=== PATIENT | male | born 1970 | race Caucasian/White ===

== ENCOUNTER 2022-02-08 10:53 | Outpatient (CLI) | payer BC, SELFPAY ==
[2022-02-08 11:06] LABS: Hematocrit 49.9 % (40.0-54.0); Hemoglobin 17.6 g/dL (14.0-18.0); Mean Corpuscular HGB Conc 35.3 g/dL (32.0-36.0); Mean Corpuscular Hemoglobin 30.5 pg (27.0-31.0); Mean Corpuscular Volume 86.5 fL (78.0-102.0); Mean Platelet Volume 10.3 fl (8.7-11.0); Platelet Count Result 218 K/mm3 (150-420); Red Blood Count 5.77 M/mm3 (4.70-6.10); Red Cell Distribution Width 12.9 % (11.6-14.4); White Blood Count 11.6 K/mm3 (4.8-10.8)
[2022-02-08 11:36] LABS: Alanine Aminotransferase 24 U/L (16-63); Albumin Level 3.9 g/dL (3.4-5.0); Alkaline Phosphatase 77 U/L (46-116); Anion Gap 10 mmol/L (8-16); Aspartate Amino Transferase 17 U/L (15-37); Bilirubin,Total 0.4 mg/dL (0.00-1.00); Blood Urea Nitrogen 20 mg/dL (7-18); Carbon Dioxide 26 mmol/L (21-32); Chloride 103 mmol/L (98-108); Cholesterol 243 mg/dL (0-200); Estimated Glomerular Filt Rate > 60; Glucose 158 mg/dL (70-99); HDL Direct 36 mg/dL (40-60); LDL Cholesterol Calculated 160 mg/dL (<130); Osmolality Calculated 293 mOsm/kg (285-295); Potassium 3.7 mmol/L (3.5-5.1); Sodium 139 mmol/L (136-145); Total Protein 7.2 g/dL (6.4-8.2); Triglycerides 237 mg/dL (0-150)
[2022-02-08 12:00] LABS: Thyroid Stimulating Hormone Reflex 1.04 u/IU/mL (0.36-3.74)
== END 2022-02-08 10:54 | disposition home or self-care (01) ==
PROVIDERS: PCP Family Medicine; Visit Provider Family Medicine
DX: E11.9 Type 2 diabetes mellitus without complications (principal); I10 Essential (primary) hypertension
CPT/HCPCS: 36415; 80053; 80061; 84443; 85027

== ENCOUNTER 2022-07-11 11:09 | Outpatient (CLI) | payer BC, SELFPAY | END 2022-07-11 11:10 | disposition home or self-care (01) | LOC: CHSLAB 11:11 | PROVIDERS: PCP Family Medicine; Visit Provider Specialist | DX: C44.311 Basal cell carcinoma of skin of nose (principal) | CPT/HCPCS: 88305 ==

== ENCOUNTER 2023-04-10 16:13 | Outpatient (CLI) | payer BC, SELFPAY | END 2023-04-10 16:14 | disposition home or self-care (01) | LOC: CHSLAB 16:16 | PROVIDERS: PCP Family Medicine; Visit Provider Specialist | DX: C44.311 Basal cell carcinoma of skin of nose (principal) | CPT/HCPCS: 88305 ==

== ENCOUNTER 2024-12-28 08:16 | Emergency (ER) | payer BC, SELFPAY ==
[2024-12-28 08:30] VITALS: BP 173/109; PULSE 75; RESP 20; TEMP 36.7; O2SAT 97
--- NOTE | 2024-12-28 08:41 | ED.URI ---
HPI - URI/Sore Throat General Chief Complaint: Upper Respiratory Infection Stated Complaint: Dizziness Headache swollen watery eyes Patient presents to [facility] with complaints of intermittent sinus pain, headache, dizziness, swelling and watering to both eyes that began about 3 weeks ago. Patient noted symptoms did improve but over the last week but worse again. Patient noted in the morning this is better but as the day goes on symptoms do get worse. Patient does report that he has not been to the doctor in many years, used to be on blood pressure medication. the patient denies taking blood pressure at home. Denies chest pain, shortness a breath, vision changes, palpitations, nausea, vomiting, or indigestion. Related Data Allergies Allergy/AdvReac Type Severity Reaction Status Date / Time No Known Allergies Allergy Verified 12/28/24 08:35 Review of Systems Constitutional: Constitutional: Reports as per HPI, Denies chills, Denies fatigue, Denies fever(s) and Denies weakness Eyes: Eyes: Reports as per HPI, Denies change in vision and Denies photophobia Comments: Swelling, pressure around eyes, watering to both eyes ENT: Reports as per HPI, Reports vertigo, Reports dizziness, Denies nasal congestion and Denies sore throat Cardiovascular: Cardiovascular: Reports as per HPI, Reports chest pain, Denies rapid heart rate, Denies radiating jaw, neck or arm pain and Denies slow heart rate Respiratory: Respiratory: Reports as per HPI, Denies chest congestion, Denies cough, Denies dyspnea and Denies wheezing Gastrointestinal: Gastrointestinal: Reports as per HPI, Denies heartburn, Denies diarrhea, Denies nausea and Denies vomiting Genitourinary: Genitourinary: Reports no additional male genitourinary complaints Musculoskeletal: Musculoskeletal: Reports no additional musculoskeletal complaints Integumentary/Breasts: Skin/Breast: Reports system reviewed and no additional complaints, except as docu Neurologic: Reports as per HPI, Reports vertigo, Reports dizziness, Reports headache(s), Denies numbness and Denies weakness Psychiatric: Psychiatric: Reports no additional psychiatric complaints Endocrine: Endocrine: Reports no additional endocrine complaints Hematologic/Lymphatic: Hematologic/Lymphatic: Reports no additional hematologic/lymphatic complaints Allergic/Immunologic: Allergic/Immunologic: Reports as per HPI, Denies lip swelling, Denies throat swelling, Denies tongue swelling and Denies wheezing Comments: sinus pressure, watering and itching to both eyes Exam Const: General: healthy appearing and no acute distress Nutritional Appearance: well nourished Orientation/consciousness: patient oriented x3 Limitations: no limitations HENMT: Head: normal to inspection Ears: external ears normal and TM's abnormal bilaterally ( bulging bilaterally with moderate clear fluid behind both TMs) Face/Nose/Sinus: Normal external nose present Face and sinus: normal facial exam and sinus tenderness ( bilateral) frontal and maxillary Mouth: Yes Normal oral and palatal mucosa present, Yes lip normal and Yes moist mucous membranes Throat: posterior oropharynx abnormal ( moderate erythema, no edema or exudate) Eyes: Conjunctivae: conjunctivae normal Pupils: Equal, round and reactive pupils present EOM: EOMs intact bilaterally Direct Ophthalmoscopy: no photophobia Neck: Neck: normal visual inspection and no lymphadenopathy Resp: Effort & Inspection: normal respiratory effort Auscultation: clear to auscultation bilaterally Cardio: Rate: regular rate Rhythm: regular rhythm Skin: General skin exam: normal color Rashes: no rashes Wounds: no wounds Neuro: General: patient oriented x3, moves all extremities, no meningeal signs and no focal motor deficits Cranial nerves: Yes Nystagmus not present Speech: normal speech Gait exam (Neuro): Normal gait present Extrem: General: normal to inspection, no clubbing, cyanosis or edema and no pedal edema Psych: Mental Status: mental status grossly normal Affect: normal affect Attitude: cooperative Course Course Level of Care: Express Care Visit Vital Signs Vital signs: Vital Signs Temperature 98.1 F 12/28/24 08:30 Pulse Rate 75 12/28/24 08:30 Respiratory Rate 20 12/28/24 08:30 Blood Pressure 173/109 H 12/28/24 08:30 Pulse Oximetry 97 12/28/24 08:30 Oxygen Delivery Room Air 12/28/24 08:30 Temperature 98.1 F 12/28/24 08:30 Pulse Rate 75 12/28/24 08:30 Respiratory Rate 20 12/28/24 08:30 Blood Pressure 173/109 H 12/28/24 08:30 Pulse Oximetry 97 12/28/24 08:30 Oxygen Delivery Room Air 12/28/24 08:30 MDM - URI/Sore Throat MDM Narrative Medical decision making narrative: spoke with patient about overall symptoms. Also noted concerns with blood pressure Discharge instructions reviewed with patient, as well as provided in writing per nursing staff. The instructions also include specific and strict return/GO TO THE ER as well as f/u information. All questions have been answered, and the patient deny any further questions with discharge and discharge plan. Differential Diagnosis Differential diagnosis: Likely upper respiratory infection, otitis media, sinusitis, viral infection, influenza and pharyngitis Medical Records Attestation: I reviewed the patient's medical records. Discharge Plan Discharge Clinical Impression: Sinusitis, Elevated blood pressure reading, Dizziness Patient Disposition: Home Condition: Stable Instructions: Antibiotic Form, Sinusitis (ED), Chronic Hypertension (ED), DASH Eating Plan (ED), Warm Compress or Soak (ED) Additional Instructions: Please schedule a follow up visit with your personal physician for further evaluation and treatment within 3-5 days. Including recheck and discussion of your blood pressure. If your symptoms persist, change or worsen significantly before you can contact your personal physician then please, without delay, go to the emergency department for further evaluation. Your blood pressure was elevated above 120/80 today at Urgent Care. This puts you above the threshold for follow up visit with a primary care provider. High blood pressure does not usually cause any symptoms, however it may lead to kidney failure, stroke, heart disease just to name a few if untreated . Many people are anxious when seeing a provider or nurse. As a result, you are not diagnosed with hypertension at this time unless your blood pressure is persistently high at two office visits at least one week apart; therefore it is very important that you follow up with a primary care doctor for further evaluation. Return to urgent care or go to the ER for new or worsening symptoms. Continue to take Tylenol or Motrin for pain. Use a humidifier or vaporizer at night. Take Medications as prescribed. Drink plenty of water. 8-10 glasses per day. Use flonase 2 times per day for 5 days then as needed Take mucinex 2 times per day and be sure to take with 8oz of water. Follow up with Primary provider if not getting better. Return to Express Care or go to the ER for new or worsening symptoms. Take the full dose of antibiotics as directed to decrease inflammation and open up sinus and airway Increase water intake to 8-10 glasses per day Patient Language: Israeli Prescriptions: New amoxicillin 875 mg tablet 875 mg PO Q12H Qty: 20 0RF Follow-up/Referrals: PHYSICIAN,CHAR DUST CLEANER AND SALVAGER [Primary Care Provider] - Time of Disposition: 08:50
== END 2024-12-28 08:55 | disposition home or self-care (01) ==
PROVIDERS: Emergency Provider Nurse Practitioner Family
DX: J32.9 Chronic sinusitis, unspecified (principal); R03.0 Elevated blood-pressure reading, without diagnosis of hypertension; R42 Dizziness and giddiness
CPT/HCPCS: 99203; G0463

== ENCOUNTER 2024-12-29 08:50 | Emergency (ER) | payer BC, SELFPAY ==
[2024-12-29] VITALS (18 sets, daily range): BP systolic 137–184; BP diastolic 90–111; PULSE 75; RESP 16–17; TEMP 36.3; O2SAT 91–97
--- NOTE | ~2024-12-29 | CT_ITS ---
EXAMINATION: CT brain wo con DATE: 12/29/2024 10:53 INDICATION: Dizziness TECHNIQUE: Computed tomography (CT) of the head was performed without intravenous contrast. Sagittal and coronal reconstructions were performed. The mA was adjusted according to patient size. Iterative reconstruction technique was employed. The dose-length product was 756.67 mGy-cm. COMPARISON: None FINDINGS: No acute intracranial hemorrhage, acute infarction or abnormal extra axial fluid collection. Ventricl es are normal and symmetric. No mass/mass effect. Mild mucosal thickening the bilateral and maxillary sinuses. The orbits and mastoid air cells are normal. IMPRESSION: 1. No acute intracranial process. Reviewed, dictated and finalized at location A.
--- NOTE | 2024-12-29 08:52 | ECG_ITS ---
Test Date: 2024-12-29 09:19:54 Measurements Intervals Louann Rate: 65 P: 25 CO: 153 QRS: -50 QRSD: 98 T: -4 QT: 398 QTc: 416 Interpretive Statements SINUS RHYTHM LEFT ANTERIOR FASCICULAR BLOCK [QRS AXIS <= -45, QR IN I, RS IN II] No previous ECG available for comparison Electronically Signed On 12-29-2024 12:43:48 CDT by Doyle Rockwell M.D.
--- NOTE | 2024-12-29 08:53 | ED_ITS ---
HPI - Dizziness General Chief Complaint: Recheck/Abnormal Lab/Rx Stated Complaint: HTN Time Seen by Provider: 12/29/24 08:52 History of Present Illness HPI Narrative: pt went to yesterday for some sinus congestion and dizziness and was informed he had high BP and needed to get checked out. Pt saw Dr Currie years ago and was started on BP meds but worked out of [place] for a year and stopeed taking them and has not been back. Pt has intermittent SCOTT but none now and dizziness. Pt denies CP or SOB. Pt rechecked BP this morning and it was 160/110. Related Data Home Medications ?Medication ?Instructions ?Recorded ?Confirmed ?Last Taken ?Type omeprazole 20 mg capsule,delayed 20 mg PO DAILY 02/08/22 12/29/24 12/29/24 History release amoxicillin 875 mg tablet mg 12/29/24 12/29/24 History Allergies Allergy/AdvReac Type Severity Reaction Status Date / Time No Known Allergies Allergy Mild Verified 12/29/24 08:55 Review of Systems 2 Review of Systems: All systems reviewed & are unremarkable except as noted in HPI and below PMFSH Family History Family History Mother Family history of emphysema Other Hypertension Social History Social History Smoking packs per day: 1 Smoking cigarettes per day: 20.0 Years smoked: 35 Smoking pack-years: 35.00 Smoking status: Current every day smoker Alcohol intake: current Alcohol use details: Occasionally Exam 2 Const: General: healthy appearing and no acute distress Nutritional Appearance: well nourished Orientation/consciousness: patient oriented x3 Limitations: no limitations HENMT: Head: normal to inspection Eyes: Pupils: Equal, round and reactive pupils present EOM: EOMs intact bilaterally Chest: Chest palpation & inspection: normal inspection of the chest Resp: Effort & Inspection: normal respiratory effort Auscultation: clear to auscultation bilaterally Cardio: Rate: regular rate Rhythm: regular rhythm GI: GI Palp: Yes Soft to palpation and No Tenderness to palpation present (GI) Auscultation: normal bowel sounds Skin: General skin exam: normal color Rashes: no rashes Neuro: General: patient oriented x3, moves all extremities, no meningeal signs, no focal motor deficits and CN's II-XI intact bilaterally Cranial nerves: Yes Nystagmus not present Speech: normal speech Extrem: General: normal to inspection and no clubbing, cyanosis or edema Psych: Mental Status: mental status grossly normal Affect: normal affect Attitude: cooperative Course Vital Signs Vital signs: Vital Signs Temperature 97.4 F L 12/29/24 08:51 Pulse Rate 75 12/29/24 08:51 Respiratory Rate 17 12/29/24 08:51 Blood Pressure 184/111 H 12/29/24 08:51 Pulse Oximetry 95 12/29/24 08:51 Oxygen Delivery Room Air 12/29/24 08:51 Temperature 97.4 F L 12/29/24 08:51 Pulse Rate 75 12/29/24 08:51 Respiratory Rate 16 12/29/24 08:58 Blood Pressure 147/95 H 12/29/24 09:56 Pulse Oximetry 93 12/29/24 10:00 Oxygen Delivery Room Air 12/29/24 08:51 MDM - Dizziness MDM Narrative Medical decision making narrative: Pt presents with dizziness and elevated BP. Pt has not been on Bp meds for years so will get ekg and labs to make sure there is no end organ damage and ct brain. CT scanner out for two hours due to bed bugs so pt made aware of delay. will give dose of clonidine to lower BP. BP improved after clonidine to 137/90/ labs reviewed and normal CT independently reviewed and normal and radiology reading normal as well. will start patient on hctz 25 mg daily and have follow up with Dr Currie. Lab Data 12/29/24 09:01 12/29/24 09:01 Labs: Lab Results 12/29/24 Range/Units 09:01 WBC 10.9 H (4.8-10.8) K/mm3 RBC 5.99 (4.70-6.10) M/mm3 Hgb 17.7 (14.0-18.0) g/dL Hct 52.1 (40.0-54.0) % MCV 87.0 (78.0-102.0) fL MCH 29.5 (27.0-31.0) pg MCHC 34.0 (32-36) g/dL RDW 13.0 (11.6-14.4) % Plt Count 224 (150-420) K/mm3 MPV 10.9 (8.7-11.0) fl Immature Gran % (Auto) 0.6 H (0.0-0.0) % Neut % (Auto) 70.6 H (50.0-70.0) % Lymph % (Auto) 20.7 (18.0-42.0) % [place] % (Auto) 5.9 (2.0-11.0) % Eos % (Auto) 1.7 (1.0-6.0) % Baso % (Auto) 0.5 (0.0-1.0) % Lymph # (Auto) 2.26 (1.10-4.50) K/mm3 [place] # (Auto) 0.64 (0.10-0.90) K/mm3 Eos # (Auto) 0.19 (0.02-0.50) K/mm3 Baso # (Auto) 0.05 (0.00-0.10) K/mm3 Abs Immat Gran (auto) 0.07 H (0.00-0.00) K/mm3 Absolute Neuts (auto) 7.69 H (1.70-7.20) K/mm3 Absolute Nucleated RBC 0.00 (0.00-0.00) K/mm3 Nucleated RBC % 0.0 (0-0.0) % Sodium 137 (137-145) mmol/L Potassium 4.6 (3.4-5.0) mmol/L Chloride 106 (98-107) mmol/L Carbon Dioxide 27 (22-30) mmol/L Anion Gap 4 (4-12) mmol/L BUN 17 (9-20) mg/dL Creatinine 0.97 (0.7-1.3) mg/dL Estim Creat Clear Calc 77 ml/min Estimated GFR > 60 (59 - ) Glucose 102 (65-110) mg/dL Calculated Osmolality 285 (285-295) mOsm/kg Calcium 9.3 (8.4-10.2) mg/dL Total Bilirubin 0.7 (0.2-1.3) mg/dL AST 36 (17-59) U/L ALT 51 H (6-50) U/L Alkaline Phosphatase 66 (38-126) U/L Total Protein 7.3 (6.3-8.2) g/dL Albumin 4.3 (3.5-5.1) g/dL ECG Data EKG #1: Interpretation: nsr rate [address] or t wave changes Discharge Plan Discharge Clinical Impression: Hypertension Patient Disposition: Home Condition: Improved Instructions: Antibiotic Form, Hypertension (ED) Patient Language: Citizen Of [place] Prescriptions: New hydrochlorothiazide 25 mg tablet 25 mg PO DAILY Qty: 30 0RF No Action amoxicillin 875 mg tablet omeprazole 20 mg capsule,delayed release(DR/EC) 20 mg PO DAILY Follow-up/Referrals: Eugene Coreas MD [Primary Care Provider] -
--- NOTE | 2024-12-29 09:00 | PC.NURSE ---
Pt informed by MD Francia that CT scanner is currently down and will not be back up for 1-2 hours. Pt is agreeable to waiting at this time.
--- OUTSIDE RECORDS SUMMARY | 2024-12-29 09:00 | XMS_ITS | Clinical Summary ---
[facility] Address [address] [place] [address] Care Team Providers Care Warp Picker Name Role Phone Merrill Tellez Primary Care Provider [phone] Allergies No known active allergies Medications omeprazole (PriLOSEC) 20 mg capsule take 1 capsule (20MG) by ORAL route every day before a meal 30 11 07/07/2011 Active ibuprofen (ADVIL,MOTRIN) 200 mg tablet 200 mg. 0 07/28/2011 Activ e amLODIPine (NORVASC) 5 mg tabletIndication s:hypertension Take 10 mg by mouth every morning Doesn't take anymore, stopped on own 5-6 months ago 03/21/2021 Active atorvastatin (LIPITOR) 20 mg tabletIndication s:hyperlipidemia Take 20 mg by mouth nightly Hasn't taken in 5-6 mo. Stopped on own 03/21/2021 Active lisinopriL (PRINIVIL,ZESTRI L) 20 mg tablet Take 20 mg by mouth daily 02/22/2022 Active tamsulosin (FLOMAX) 0.4 mg extended release capsuleIndicatio ns:benign prostatic hyperplasia with lower urinary tract sx Take 1 capsule (0.4 mg total) by mouth nightly for 15 days 15 capsule 03/01/2022 Active Active Problems Problem Noted Date Diagnosed Date Prostate cancer 01/24/2022 Overview (01/24/2022): Added automatically from request for surgery [id number] Benign prostatic hyperplasia 04/12/2021 Elevated PSA 04/12/2021 Hypertension 04/12/2021 Depression 04/02/2014 Overview (09/07/2016): Depression Yu's esophagus 10/18/2013 Overview (09/07/2016): Yu's esophagus Ulcerative esophagitis 10/18/2013 Overview (09/08/2016): Ulcerative esophagitis Anorectal abscess 08/04/2011 Overview (09/07/2016): ANAL & RECTAL ABSCESS Gastroesophageal reflux disease 07/28/2011 Overview (09/08/2016): GERD (gastroesophageal reflux disease) Immunizations Immunization Administration Dates Next Due Tdap 07/07/2011 Surgical History Surgery Date Site/Laterality Comments OTHER SURGICAL HISTORY 06/04/2009 - 06/03/2010 Pararectal Abscess HEMORRHOID SURGERY 2009 Hemorrhoidectomy TONSILLECTOMY OTHER SURGICAL HISTORY 2011 excision left neck mass PROSTATE BIOPSY 01/02/2022 - 02/01/2022 Medical History Medical History Date Comments Gastroesophageal reflux disease GERD Hypertension Covid-19 01/2019 Family History Medical History Relation Name Comments Other Brother 1 pascual Alive and well; Other Brother 2 wendy Alive and well; Other Father No history of H ypertension; COPD Mother copd; Heart disease Other Family history of Heart disease; Anesthesia problems Neg Hx Relation Name Status Comments Brother 1 pascual Alive Brother 2 wendy Alive Father Mother Other Social History Tobacco Use Types Packs/Day Years Used Date Smoking Tobacco: Heavy Smoker Cigarettes 1 49.6 Started: 1975 Smokeless Tobacco: Never Tobacco Cessation:Ready to Q uit: No; Counseling Given: Yes Comments:Smoking History Packs/day: 2 Packs Alcohol Use Standard Drinks/Week Comments Yes 0 (1 standard drink = 0.6 oz pur e alcohol) AUDIT-C Answer Date Recorded Q1: How often do you have a drink containing alc ohol? 2-4 times a month 02/08/2022 Q2: How many drinks containi ng alcohol do you have on a typical day when you are drinking? 1 or 2 02/08/2022 Q3: How often do you have si x or more drinks on one occasion? 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 Gender Identity Not on file Sexual Orientation Not on file Obstetrics History Last Filed Vital Signs Vital Sign Reading Time Taken Comments Blood Pressure 131/81 03/01/2022 12:35 PM CDT Pulse 65 03/01/2022 12:35 PM CDT Temperature 35.7 C (96.3 F) 03/01/2022 12:05 PM CDT Respiratory Rate 17 03/01/2022 9:05 AM CDT Oxygen Saturation 97% 03/01/2022 12: 35 PM CDT Inhaled Oxygen Concentration - - Weight 93.8 kg (206 lb 12.8 oz) 03/01/2022 7:28 AM CDT Height 177.8 cm (5' 10) 03/01/2022 7:28 AM CDT Body Mass Index 29.67 03/01/2022 7:28 AM CDT Plan of Treatment Health Maintenance Due Date Last Done Comments Colon Cancer Screening-Colonoscopy 1968 Depression Screening 1968 Hepatitis C Screening 1968 Hepatitis B Screening 1986 Regular Well Visit/Exam 18-64 1986 Pneumococcal vaccine <65 (1 of 2 - PCV) 10/04/1987 Zoster Vaccine (1 of 2) 2018 DTaP/Tdap/Td Vaccine (2 - Td or Tdap) 07/07/202108/2011 Prostate Cancer Screening-PSA 11/04/2023 11/03/2021, 04/12/2021 Influenza Vaccine (#1) 2025 Procedures Procedure Name Priority Date/Time Associated Diagnosis Comments PSA SCREEN Routine 11/03/2021 8:11 AM CDT Elevated PSA from Last 3 Months or Most Recently Relevant to Health Maintenance Results * (ABNORMAL) PSA screen (11/03/2021 8:11 AM CDT) PSA-Total 6.94(H) <=3.90 ng/mL [facility] Comment: Interpretive Data AGE SEX REFERENCE INTERVAL 0 minutes-150 years Female None 0 minutes-49 years Male None 50-59 years Male 0-3.90 60-69 years Male 0-5.40 70-79 years Male 0-6.20 80-150 years Male 0-6.20 The Jacoby PSA Total assay procedure was used. Results from different manufacturers or methods may not be comparable. Serial testing should be performed using the same method. Current interpretive data last revised 21. Testing performed by: [facility], [address] [place] [address]., [id number] Blood 11/03/2021 8:11 AM CDT 11/03/2021 10:41 AM CDT us Driss Barros MD LAB BLOOD ORDERABLES Final Re sult [facility] ([place]) 1 [facility] Department of Laboratories [place], [place] [id number] from Last 3 Months or Most Recently Relevant to Health Maintenance Insurance [place] Care Teams Warp Picker Relationship Specialty Start Date End Date Merrill Tellez PA [address] [place] [address] PCP - General Family Practice 03/07/21
--- OUTSIDE RECORDS SUMMARY | 2024-12-29 09:00 | XMS_ITS | Referral Summary ---
[facility] Address [address] [place] [address] Care Team Providers Care Metallurgist Helper Name Role Phone Merrill Tellez Primary Care Provider [phone] Allergies No known active allergies Medications omeprazole [...] (01/24/2022): Added automatically from request for surgery [id number] Benign prostatic hyperplasia 04/12/2021 Elevated PSA 04/12/2021 Hypertension 04/12/2021 Depression 04/02/2014 Overview (09/07/2016): Depression Yu's esophagus 10/18/2013 Overview (09/07/2016): Yu's esophagus Ulcerative esophagitis 10/18/2013 Overview (09/08/2016): Ulcerative esophagitis Anorectal abscess 08/04/2011 Overview (09/07/2016): ANAL & RECTAL ABSCESS Gastroesophageal reflux disease 07/28/2011 Overview (09/08/2016): GERD (gastroesophageal reflux disease) Immunizations Immunization Administration Dates Next Due Tdap 07/07/2011 Social History Tobacco Use Types Packs/Day Years [...] on file 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 Testing performed by: [facility], [address] [place] [address], [place]., [address] Blood 11/03/2021 8:11 AM CDT 11/03/2021 10:41 AM CDT us Driss Barros MD LAB BLOOD ORDERABLES Final Re sult [facility] ([place]) 1 [facility] Department [place] [address] from Last 3 Months or Most Recently Relevant to Health Maintenance [place] Care Teams Metallurgist Helper Relationship Specialty Start Date End Date Merrill Tellez PA [address] [place] [address] PCP - General Family Practice 03/07/21
[2024-12-29 09:05] LABS: Hematocrit 52.1 % (40.0-54.0); Hemoglobin 17.7 g/dL (14.0-18.0); Immature Granulocyte Percent A 0.6 % (0.0-0.0); Lymphocytes Absolute Auto 2.26 K/mm3 (1.10-4.50); Mean Corpuscular HGB Conc 34.0 g/dL (32-36); Mean Corpuscular Hemoglobin 29.5 pg (27.0-31.0); Mean Corpuscular Volume 87.0 fL (78.0-102.0); Nucleated Red Blood Cells Absolute Auto 0.00 K/mm3 (0.00-0.00); Nucleated Red Blood Cells Perc 0.0 % (0-0.0); Platelet Count Result 224 K/mm3 (150-420); Red Blood Count 5.99 M/mm3 (4.70-6.10); White Blood Count 10.9 K/mm3 (4.8-10.8)
[2024-12-29 09:15] LABS: Alanine Aminotransferase 51 U/L (6-50); Albumin Level 4.3 g/dL (3.5-5.1); Alkaline Phosphatase 66 U/L (38-126); Anion Gap 4 mmol/L (4-12); Aspartate Amino Transferase 36 U/L (17-59); Bilirubin,Total 0.7 mg/dL (0.2-1.3); Blood Urea Nitrogen 17 mg/dL (9-20); Calcium 9.3 mg/dL (8.4-10.2); Carbon Dioxide 27 mmol/L (22-30); Chloride 106 mmol/L (98-107); Estimated CRCL calculation 77 ml/min; Estimated Glomerular Filt Rate > 60; Glucose 102 mg/dL (65-110); Osmolality Calculated 285 mOsm/kg (285-295); Potassium 4.6 mmol/L (3.4-5.0); Sodium 137 mmol/L (137-145); Total Protein 7.3 g/dL (6.3-8.2)
--- OUTSIDE RECORDS SUMMARY | 2024-12-29 09:51 | XMS_ITS | Clinical Summary ---
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 Testing performed by: [facility], [address] [place] [address]., [address] Blood 11/03/2021 8:11 AM CDT 11/03/2021 10:41 AM CDT us Driss Barros MD LAB BLOOD ORDERABLES Final Re sult [facility] ([place]) 1 [facility] Department of Laboratories [place], [place] [id number] from Last 3 Months or Most Recently Relevant to Health Maintenance [place] Care Teams Senior Civil Engineer Relationship Specialty Start Date End Date Merrill Tellez PA [address] [place] [address] PCP - General Family Practice 03/07/21
--- OUTSIDE RECORDS SUMMARY | 2024-12-29 09:51 | XMS_ITS | Referral Summary ---
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 Testing performed by: [facility], [address] [place] [address], [place]., [address] Blood 11/03/2021 8:11 AM CDT 11/03/2021 10:41 AM CDT us Driss Barros MD LAB BLOOD ORDERABLES Final Re sult [facility] ([place] 1 [facility] Department [place] [address] from Last 3 Months or Most Recently Relevant to Health Maintenance [place] Care Teams Screen Stretcher Relationship Specialty Start Date End Date Merrill Tellez PA [address] [place] [address] PCP - General Family Practice 03/07/21
== END 2024-12-29 11:23 | disposition home or self-care (01) ==
PROVIDERS: Emergency Provider Emergency Medicine; PCP Family Medicine
DX: I10 Essential (primary) hypertension (principal); F17.210 Nicotine dependence, cigarettes, uncomplicated
CPT/HCPCS: 36415; 70450; 80053; 85025; 93005; 99284; A9270

== ENCOUNTER 2025-01-17 07:23 | Outpatient (CLI) | payer BC, SELFPAY ==
--- OUTSIDE RECORDS SUMMARY | 2025-01-17 07:27 | XMS_ITS | Clinical Summary ---
Author Organization [facility] [address] Address [address] [place] [address] Care Team Providers Care Set And Exhibit Designer Name Role Phone Merrill Tellez Primary Care Provider [phone] Allergies No known active allergies Medications omeprazole [...] (01/24/2022): Added automatically from request for surgery [id number] Benign prostatic hyperplasia 04/12/2021 Elevated PSA 04/12/2021 [...] on file Legal Sex Male 9:08 AM [employer]ION [employer] Gender Identity Not on file Sexual [...] CDT Height 177.8 cm (5' 10) 03/01/2022 7: 28 AM CDT Body Mass Index 29.67 03/01/2022 [...] data last revised 21. Testing performed by: [facility], [address] [place] [address]., [id number] Blood 11/03/2021 8:11 AM CDT 11/03/2021 10:41 AM CDT us Driss Barros MD LAB BLOOD ORDERABLES Final Re sult [facility] ([place]) [facility] Department of Laboratories [place], [place] [id number] from Last 3 Months or Most Recently Relevant to Health Maintenance [place] Care Teams Set And Exhibit Designer Relationship Specialty Start Date End Date Merrill Tellez PA [address] [place] [address] PCP - General Family Practice 03/07/21
[2025-01-17 08:39] LABS: Cholesterol 236 mg/dL (0-200); HDL Direct 37 mg/dL; Triglycerides 194 mg/dL (<150)
== END 2025-01-17 07:24 | disposition home or self-care (01) ==
LOC: CHSLAB 07:25
PROVIDERS: PCP Family Medicine; Visit Provider Family Medicine
DX: E78.5 Hyperlipidemia, unspecified (principal)
CPT/HCPCS: 36415; 80061